=== PATIENT | female | born 1965 | race Caucasian/White ===

== ENCOUNTER 2021-04-10 10:24 | Emergency (ER) | payer MEDICARE, OTHER ==
[2021-04-10 10:29] VITALS: BP 139/61; PULSE 68; RESP 18; TEMP 98.1
[2021-04-10] MEDS ORDERED: KETOROLAC 15 MG/ML 1 ML VIAL IM STA (10:54)
--- NOTE | 2021-04-10 10:56 | ED ---
Fall HPI - General Chief Complaint: Fall Stated Complaint: Fall/Lt Shoulder Injury Time Seen by Provider: 04/10/21 10:34 Source: patient Mode of arrival: ambulatory - History of Present Illness Initial Comments: Patient is a 56-year-old female presenting to the ER for evaluation of left shoulder pain. This morning she slipped and fell [place] falling on her left shoulder and hip. She did not hit her head. She is not on blood thinners. The pain is a sharp stabbing pain and she is unable to move her left arm. Pain in the hip is acute, throbbing pain. Fingers have full range of motion and sensation. Denies headache, vision changes, numbness, weakness, tingling, joint swelling, bruising, nausea, vomiting, dizziness, chest pain, shortness of breath. - Related Data Home Medications Medication Instructions Recorded Confirmed Omeprazole [PriLOSEC] 20 mg PO DAILY PRN 11/05/13 11/26/14 Oxybutynin Xl [Ditropan Xl] 5 mg PO HS 11/26/14 11/26/14 buPROPion XL [Wellbutrin Xl] 150 mg PO HS 11/26/14 11/26/14 Previous Rx's Medication Instructions Recorded HYDROcodone/APAP 5-325MG [[place] 1 tab PO Q6HR PRN 3 Days #12 tab 04/10/21 5-325] Allergies Allergy/AdvReac Type Severity Reaction Status Date / Time amoxicillin Allergy Severe SOB, Verified 04/10/21 10:29 Increased BP codeine Allergy Rash/Hives Verified 04/10/21 10:29 Review of Systems ROS Statement: Those systems with pertinent positive or pertinent negative responses have been documented in the HPI. ROS Other: All systems not noted in ROS Statement are negative. Past Medical History Past Medical History: Pulmonary Embolus (PE) Additional Past Medical History / Comment(s): migraines, heartburn, has had "tightness in chest", Sob with activity, anemia History of Any Multi-Drug Resistant Organisms: None Reported Past Surgical History: Appendectomy, Bariatric Surgery, Cholecystectomy, Heart Catheterization, Tubal Ligation Additional Past Surgical History / Comment(s): gastric bypass Past Anesthesia/Blood Transfusion Reactions: No Reported Reaction Past Psychological History: Depression Smoking Status: Current every day smoker Past Alcohol Use History: None Reported Past Drug Use History: None Reported - Past Family History Mother Family Medical History: Cancer Father Family Medical History: Cancer General Exam Limitations: no limitations General appearance: alert, in no apparent distress Head exam: Present: atraumatic, normocephalic, normal inspection Eye exam: Present: normal appearance, PERRL, EOMI. Absent: scleral icterus, conjunctival injection, periorbital swelling Neck exam: Present: normal inspection Cardiovascular Exam: Present: regular rate, normal rhythm, normal heart sounds. Absent: systolic murmur, diastolic murmur, rubs, gallop, clicks Left Shoulder Exam: Present: tenderness, swelling, deformity. Absent: normal inspection, full ROM, erythema Upper Arm exam: Absent: full ROM Neurosensory exam: Present: other (Vascularly intact) Vascular: Present: normal capillary refill, radial pulse Neurological exam: Present: alert, oriented X3, CN II-XII intact Psychiatric exam: Present: normal affect, normal mood Skin exam: Present: warm, dry, intact, normal color. Absent: rash Course Vital Signs 04/10/21 10:26 Temperature 98.1 F Pulse Rate 68 Respiratory 18 Rate Blood Pressure 139/61 O2 Sat by Pulse 97 Oximetry Medical Decision Making - Medical Decision Making Patient is a 56-year-old female presenting to the ER for evaluation of left shoulder pain. Occurred after he slipped in the shower earlier today. She did not hit her head. She does not meet [place] head CT rules nor is she on blood thinners. On exam she is unable to move the left arm. She has full sensation and pulses are present. X-ray revealed a proximal humerus fracture. Spoke with Dr. Saldivar advised placement in sling and having her follow up with Dr. Begum the office. Patient explained to me that she is from out of town and plans on leaving back for [place] tomorrow. I stressed to her the importance of orthopedic follow-up. Gave Toradol in the ER for pain control which did not resolve symptoms. Prescribed 3 days of [place] for pain management until she is able to be evaluated by orthopedics. Ice as needed. Report back to ER if experiencing worsening symptoms or new onset alarming symptoms such as numbness, tingling, weakness, increased pain, redness, increased swelling. Answered all questions. Patient conveyed verbal understanding and agreed to the plan. Dr. Erazo is the attending. Disposition Clinical Impression: Proximal humeral fracture Disposition: HOME SELF-CARE Condition: Good Instructions (If sedation given, give patient instructions): Arm Fracture in Adults (DC), Proximal Humerus Fracture (ED) Additional Instructions: Follow-up with orthopedics tomorrow. Report back to ER with worsening symptoms or new onset alarming symptoms such as increased pain, increased swelling, redness, numbness, tingling, fever, chills. Prescriptions: HYDROcodone/APAP 5-325MG [[place] 5-325] 1 tab PO Q6HR PRN 3 Days #12 tab PRN Reason: Pain Is patient prescribed a controlled substance at d/c from ED?: Yes If prescribed controlled substance>3 days was MAPS reviewed?: Prescribed <3 Days If opioid is for acute pain is fill amount 7 days or less?: Yes Referrals: Nonstaff,Physician [REFERRING] - 1-2 days Yeison Begum MD [STAFF PHYSICIAN] - 1-2 days Time of Disposition: 12:21
--- NOTE | 2021-04-10 11:37 | XR ---
Left shoulder HISTORY: Trauma and pain 2 views of the left shoulder Displaced proximal left humeral neck fracture is present. No dislocation. Left lung apex as visualize d is normal. IMPRESSION: Proximal left humeral fracture
--- NOTE | 2021-04-10 11:38 | XR ---
EXAMINATION TYPE: XR Hip LT and AP Pelvis DATE OF EXAM: 04/10/2021 COMPARISON: NONE HISTORY: Trauma and pain TECHNIQUE: A single AP view of the pelvis is obtained. Two views of the left hip are obtained. FINDINGS: There is no acute fracture/dislocation evident in the pelvis. The hip and sacroiliac join ts appear symmetric and unremarkable. The overlying soft tissue appears unremarkable. Fallopian tuba l ligation clips are present. Two views of left hip show no acute fracture or dislocation. No focal lytic or sclerotic lesion seen in the proximal left femur. The overlying soft tissue is unremarkable. IMPRESSION: There is no acute fracture or dislocation in the pelvis or left hip.
== END 2021-04-10 12:46 | disposition home or self-care (01) ==
LOC: EC 10:24
DX: S42.202A Unspecified fracture of upper end of left humerus, initial encounter for closed fracture (principal); F32.A Depression, unspecified; F17.200 Nicotine dependence, unspecified, uncomplicated; Z88.0 Allergy status to penicillin; Z88.5 Allergy status to narcotic agent; Z86.711 Personal history of pulmonary embolism; Z90.49 Acquired absence of other specified parts of digestive tract; Z98.84 Bariatric surgery status; Z98.51 Tubal ligation status; W01.0XXA Fall on same level from slipping, tripping and stumbling without subsequent striking against object, initial encounter
CPT/HCPCS: 99283; 96372; 73502; 73020; J1885

== ENCOUNTER 2021-04-16 14:22 | Emergency (ER) | payer MEDICARE ==
[2021-04-16 14:27] VITALS: BP 127/77; PULSE 81; RESP 18; TEMP 98
[2021-04-16] MEDS ORDERED: KETOROLAC 15 MG/ML 1 ML VIAL IM STA (15:00)
[2021-04-16] MEDS ORDERED: ONDANSETRON ODT 4 MG TAB PO STA (15:12)
--- NOTE | 2021-04-16 15:17 | XR ---
EXAMINATION TYPE: XR humerus LT DATE OF EXAM: 04/16/2021 COMPARISON: 04/10/2021 HISTORY: Left arm pain TECHNIQUE: 4 views FINDINGS: there is comminuted humeral neck fracture which appears subacute. No acute fracture seen. No disloca tion. Elbow joint appears anatomic. Several fracture fragments displaced up to 1.3 cm. IMPRESSION: Subacute comminuted humeral neck fracture. No significant change in fragment position com pared to last exam.
--- NOTE | 2021-04-16 15:35 | ED ---
General Adult HPI - General Chief complaint: Recheck/Abnormal Lab/Rx Stated complaint: left shoulder pain Time Seen by Provider: 04/16/21 14:33 Source: patient Mode of arrival: ambulatory Limitations: no limitations - History of Present Illness Initial comments: Patient is a 56 year old female who presents with chief complaint of increased left arm pain and swelling after humerus fracture on 04/10/21. Patient saw Dr. Saldivar on 04/11/21 who referred her to Dr. Begum who she will see on 04/18/21. Patient has been taking Davilla which has not helped her pain and has caused nausea. She is concerned with increased bruising and swelling of the left arm and left breast. She is not on blood thinners. She does mention some new tingling down her left forearm to her fingertips. Patient reports full range of motion and sensation. - Related Data Home Medications Medication Instructions Recorded Confirmed Omeprazole [PriLOSEC] 20 mg PO DAILY PRN 11/05/13 11/26/14 Oxybutynin Xl [Ditropan Xl] 5 mg PO HS 11/26/14 11/26/14 buPROPion XL [Wellbutrin Xl] 150 mg PO HS 11/26/14 11/26/14 Previous Rx's Medication Instructions Recorded HYDROcodone/APAP 5-325MG [[place] 1 tab PO Q6HR PRN 3 Days #12 tab 04/10/21 5-325] Cyclobenzaprine [Flexeril] 10 mg PO HS PRN 7 Days #7 tab 04/16/21 Ibuprofen [Motrin] 800 mg PO Q8H PRN 7 Days #21 tab 04/16/21 Allergies Allergy/AdvReac Type Severity Reaction Status Date / Time amoxicillin Allergy Severe SOB, Verified 04/16/21 14:25 Increased BP codeine Allergy Rash/Hives Verified 04/16/21 14:25 Review of Systems ROS Statement: Those systems with pertinent positive or pertinent negative responses have been documented in the HPI. ROS Other: All systems not noted in ROS Statement are negative. Past Medical History Past Medical History: Pulmonary Embolus (PE) Additional Past Medical History / Comment(s): migraines, heartburn, has had "tightness in chest", Sob with activity, anemia History of Any Multi-Drug Resistant Organisms: None Reported Past Surgical History: Appendectomy, Bariatric Surgery, Cholecystectomy, Heart Catheterization, Tubal Ligation Additional Past Surgical History / Comment(s): gastric bypass Past Anesthesia/Blood Transfusion Reactions: No Reported Reaction Past Psychological History: Depression Smoking Status: Current every day smoker Past Alcohol Use History: None Reported Past Drug Use History: None Reported - Past Family History Mother Family Medical History: Cancer Father Family Medical History: Cancer General Exam Limitations: no limitations General appearance: alert, in no apparent distress Head exam: Present: atraumatic, normocephalic, normal inspection Respiratory exam: Present: normal lung sounds bilaterally. Absent: respiratory distress, wheezes, rales, rhonchi, stridor Cardiovascular Exam: Present: regular rate, normal rhythm, normal heart sounds. Absent: systolic murmur, diastolic murmur, rubs, gallop, clicks GI/Abdominal exam: Present: soft, normal bowel sounds. Absent: distended, tenderness, guarding, rebound, rigid Extremities exam: Present: other (Left arm and left breast healing bruises. swelling of the left arm. Normal skin tone. Radial and ulnar pulse present. Patient has sensation to light touch over the (left) arm, forearm, hand, and fingers.) Neurological exam: Present: alert, oriented X3, CN II-XII intact Psychiatric exam: Present: normal affect, normal mood Course Vital Signs 04/16/21 14:25 Temperature 98 F Pulse Rate 81 Respiratory 18 Rate Blood Pressure 127/77 O2 Sat by Pulse 97 Oximetry Medical Decision Making - Medical Decision Making This is a 56-year-old female who presents with increased pain and swelling after humeral neck fracture on 03/10/21. Thorough history and examination were performed. Left arm is swollen in the humerus region. Normal skin tone. Pulses are present. Range of motion is limited due to pain. Sensation is intact. Humerus x-ray today shows no significant change from previous. Patient given Toradol for pain with significant relief of pain. Patient will be discharged with Motrin prescription. I also prescribed Flexeril as patient has concern that the Motrin will not subside her pain at night. Patient will see her soil fertility extension specialist Dr. Begum on Sunday. She was encouraged to continue to wear the sling. Return parameters discussed. She verbalizes understanding and is agreeable to plan. Dr. Segura is my attending. Disposition Clinical Impression: Humerus fracture Disposition: HOME SELF-CARE Condition: Good Instructions (If sedation given, give patient instructions): Arm Fracture in Adults (ED) Additional Instructions: Take Motrin and Flexeril as prescribed. Do not drink or operate heavy machinery including including a vehicle while taking Flexeril. He may ice it arm 4 times a day for 20 minutes for symptom relief. Follow-up with Dr. Begum at your appointment on Sunday. Return to the emergency department if you experience new, concerning, or worsening symptoms. Prescriptions: Cyclobenzaprine [Flexeril] 10 mg PO HS PRN 7 Days #7 tab PRN Reason: Muscle Spasm Ibuprofen [Motrin] 800 mg PO Q8H PRN 7 Days #21 tab PRN Reason: Pain Is patient prescribed a controlled substance at d/c from ED?: No Referrals: Kirit Dubose MD [Primary Care Provider] - 1-2 days Time of Disposition: 16:10
== END 2021-04-16 16:30 | disposition home or self-care (01) ==
LOC: EC 14:22
DX: S42.292A Other displaced fracture of upper end of left humerus, initial encounter for closed fracture (principal); F32.A Depression, unspecified; F17.200 Nicotine dependence, unspecified, uncomplicated; Z88.5 Allergy status to narcotic agent; Z86.711 Personal history of pulmonary embolism; Z90.49 Acquired absence of other specified parts of digestive tract; Z98.84 Bariatric surgery status; Z98.51 Tubal ligation status; X58.XXXA Exposure to other specified factors, initial encounter
CPT/HCPCS: 99283; 96372; 73060; J1885